=== PATIENT | male | born 1965 | race Caucasian/White ===

== ENCOUNTER 2017-12-09 13:11 | Outpatient (CLI) | payer SELFPAY | END 2017-12-09 13:12 | disposition EMS.NT | LOC: EMS 13:11 | PROVIDERS: ATTEND Surgery | DX: T69.9XXA Effect of reduced temperature, unspecified, initial encounter (principal); V92.05XA Drowning and submersion due to fall off canoe or kayak, initial encounter; Y92.832 Beach as the place of occurrence of the external cause ==